=== PATIENT | male | born 1965 | race Caucasian/White ===

== ENCOUNTER 2023-09-04 11:48 | Emergency (ER) | payer BC, SELFPAY ==
[2023-09-04 11:49] VITALS: BP 134/85; PULSE 114; RESP 18; TEMP 36; O2SAT 98; BMI 33.3
--- NOTE | 2023-09-04 12:13 | CT_ITS ---
STUDY: CT ABDOMEN AND PELVIS WITHOUT CONTRAST REASON FOR EXAM: Male, 57 years old. Left flank pain RADIATION DOSAGE (If Supplied By Facility): CTDIvol = ( 19.44 ) mGy, DLP = ( 1053.69 ) mGycm TECHNIQUE: Transaxial images were obtained from the dome of the diaphragm to the symphysis pubis without oral contrast, and without intravenous contrast. Sagittal and coronal images were reconstructed. Individualized dose optimization techniques were used for this CT. COMPARISON: None. FINDINGS: The visualized lung bases are unremarkable. Coronary artery calcification. Normal liver. Normal gallbladder and extrahepatic biliary system. Normal spleen. Normal pancreas. Normal bilateral adrenal glands. Scattered nonobstructive tiny calculi seen in the right kidney. The largest is in the upper pole and measures 5 mm. 3 mm calculus is in the upper pole calyx of the left kidney. A punctate calculus is also seen in the mid posterior pole of the left kidney. Small stone is seen in the lower pole calyx of the left kidney. Small left parapelvic renal cysts. Mild degree of the nonspecific bilateral perinephric stranding. Normal visualized stomach. Normal small intestine. There are scattered colonic diverticula consistent with diverticulosis. The appendix is visualized and appears normal. There is scattered atherosclerotic calcification of the abdominal aorta, without a demonstrated aneurysm. Normal inferior vena cava. Normal retroperitoneum. Normal urinary bladder. There is enlargement of the prostate gland. It measures 3 cm x 4 cm. This causes indentation of the bladder base. Normal abdominal wall. There are diffuse degenerative changes of the visualized lumbar spine. Straightening of the normal lumbar lordosis. CT/Abdomen/Pelvis without Cont IMPRESSION: Nonobstructive bilateral intrarenal calculi. Small left parapelvic renal cysts. Mild enlargement of the prostate with indentation at the bladder base. Scattered sigmoid diverticula. Electronically Signed: Toby Mart MD at 12:47 EDT ,
--- NOTE | 2023-09-04 12:16 | EDS_ITS ---
HPI History of Present Illness Chief Complaint: Flank Pain Informant: patient and spouse/S.O. Narrative Narrative: 57-year-old male presenting to the emergency room with flank pain. Patient states that little over a year ago he developed pain in the left low back. He states that it went on for couple weeks and eventually resolved after he took some antibiotics for possible prostate infection. He states that in May of this year he had return of the same symptoms which again lingered and went away but then returned. While on vacation last week as doctor called him in some Bactrim. Patient states it is not improving. Patient notes that the pain seems to be left low back and will occasionally radiate along the waistline towards the left inguinal region. He denies any testicular pain or urinary symptoms. He does note some changes with bowel pattern. He notes that the stool lately has been very hard to clean. He has not characterizing it is black at this time. No reported fevers. Notes about a 9 pound weight loss recently which he does attribute to beginning Trulicity again for his diabetes. Denies any cough shortness of breath. He has had some occasional sweats. Pain does wax and wane at times he can find a very specific position to get into that which seems to help it. He states he had a prior kidney stone which this feels different. He denies any abdominal pain. He is supposed to see urology next week for an evaluation. He does note some occasional electric-like shocks into his bilateral legs. However he notes that that is relatively uncommon. [facility] Medical History Hypertension Depression Gout DM II (diabetes mellitus, type II), controlled Home Medications ?Medication ?Instructions ?Recorded ?Last Taken ?Type allopurinol 300 mg tablet 300 mg PO DAILY 09/04/23 Unknown History ascorbic acid (vitamin C) 500 mg 500 mg PO DAILY 09/04/23 Unknown History tablet (C-500) benazepril 10 mg tablet (Lotensin) 10 mg PO DAILY 09/04/23 Unknown History cholecalciferol (vitamin D3) 125 125 mcg PO DAILY 09/04/23 Unknown History mcg (5,000 unit) tablet (Vitamin D3) dulaglutide 0.75 mg/0.5 mL 0.75 mg subcut QWEEK 09/04/23 Unknown History subcutaneous pen injector (Trulicity) fluoxetine 20 mg capsule 20 mg PO DAILY 09/04/23 Unknown History metformin 1,000 mg tablet 1,000 mg PO BID 09/04/23 Unknown History oxycodone-acetaminophen 5 mg-325 1 tab PO Q6H PRN PRN pain 3 days 09/04/23 Unknown Rx mg tablet (Percocet) #12 tabs sulfamethoxazole 800 1 tab PO Q12H 09/04/23 Unknown History mg-trimethoprim 160 mg tablet (Bactrim DS) zinc 50 mg capsule 50 mg PO DAILY 09/04/23 Unknown History Allergy/AdvReac Type Severity Reaction Status Date / Time bee venom protein (honey Allergy Severe Anaphylaxis Verified 09/04/23 11:49 bee) (bees) Social History Smoking Status: Never smoker ROS ROS ED Constitutional Constitutional ED: Reports sweats and weight loss; Denies chills or fever(s) Eyes Eyes: Denies change in vision or diplopia ENT ENT ED: Denies ear pain, rhinorrhea or sore throat Cardiovascular Cardiovascular: Denies chest pain, orthopnea, palpitations or racing heartbeat Respiratory/Chest Respiratory/Chest: Denies cough, dyspnea or orthopnea Gastrointestinal Gastrointestinal: Denies abdominal pain, diarrhea, melena, nausea or vomiting Genitourinary Genitourinary ED: Denies dysuria, hematuria or urinary frequency Musculoskeletal Musculoskeletal: Reports back pain; Denies arthralgias or myalgias Integumentary Denies abscess or rash Neurologic Neurologic: Denies headache(s) or weakness Psychiatric Psychiatric: Denies anxiety, depression, suicidal ideation or suicidal thoughts Endocrine Endocrinology: Denies polydipsia, polyphagia or polyuria Allergic/Immunologic Allergic/Immunologic ED: Denies mouth swelling, tongue swelling or urticaria EXAM Physical Exam Const Vital Signs: 09/04/23 11:49 09/04/23 13:48 Temperature 96.8 F L Temperature Source Temporal Pulse Rate 114 H 83 Respiratory Rate 18 18 Blood Pressure 134/85 H 102/69 Blood Pressure Mean 101 80 Pulse Ox 98 98 Oxygen Delivery Method Room Air Room Air Positive well nourished and well developed General Appearance ED: well developed HEENT Reports normocephalic, head/scalp atraumatic and moist mucous membranes Eyes PERRL and EOMs intact bilaterally Neck no lymphadenopathy, supple and no JVD Resp normal respiratory effort and clear to auscultation bilaterally Cardio regular rate, regular rhythm and no murmurs GI normal to inspection, nondistended, normoactive bowel sounds and non-tender Palpation: soft Back/Spine no CVA tenderness and normal ROM Extremity normal to inspection General Extremety ED: Negative for edema General Extremity: Negative for edema Neuro oriented x3 and CN's II-XII intact bilaterally Sensorium / Orientation: alert Motor Exam: strength 5/5 throughout Psych mental status grossly normal Mood & Affect: Negative for depressed or tearful Skin Skin Narrative: There are about 4 small circular erythematous lesions on the right upper mid back appears to been bitten by some type of insect with a central excoriation. No surrounding cellulitic changes. MDM MDM MDM Narrative Medical decision making narrative: Differential diagnosis includes but not limited to UTI urinary retention hydronephrosis pyelonephritis retroperitoneal hematoma psoas hematoma lumbar radiculopathy malignancy CBC normal. BMP with a glucose of 167 creatinine 1.07. Sodium 132. Liver lipase within normal limits. Urinalysis shows no overt infection or hematuria. Small amount of protein and glucose was noted. CT of the abdomen pelvis without contrast was obtained. This demonstrates stones inside the kidney. Parapelvic renal cyst noted on the left I do not appreciate hydronephrosis hydroureter. I do not see any bony lesions. Enlarged prostate is noted. The above findings were discussed with the patient. I do not have a clear etiology for the patient's pain. He has follow-up scheduled next week with urology. I have asked that he follow-up with primary care as well. He may need to have lumbar MRI. Clinically I am not seeing anything obvious to intervene upon at this time. I can write for some pain medication. He notes understanding the plan will return if worsening or new symptoms or concerns History & Record Review Discussion w/independent historian: Patient and Significant other Additional record(s) reviewed:: Prior labs Lab Data Attestation: I reviewed the patient's lab results. Labs: Laboratory Results - last 24 hr 09/04/23 12:20 WBC 10.4 RBC 5.46 Hgb 16.1 Hct 47.9 MCV 87.7 MCH 29.5 MCHC 33.6 RDW Std Deviation 40.6 RDW Coeff of Jodie 12.6 Plt Count 335 MPV 10.1 Immature Gran % (Auto) 0.700 Neut % (Auto) 64.3 Lymph % (Auto) 26.0 [place] % (Auto) 5.1 Eos % (Auto) 2.9 Baso % (Auto) 1.0 Absolute Neuts (auto) 6.7 Absolute Lymphs (auto) 2.70 Nucleated RBC % 0 Sodium 132 L Potassium 4.9 Chloride 101 Carbon Dioxide 25.0 Anion Gap 6 BUN 18 Creatinine 1.07 Estim Creat Clear Calc 85.02 Est GFR (MDRD) Af Amer 91 Est GFR (MDRD) Non-Af 75 BUN/Creatinine Ratio 16.8 Glucose 167 H Calcium 10.7 H Total Bilirubin 0.50 Direct Bilirubin 0.14 AST 11 L ALT 18 Alkaline Phosphatase 90 Total Protein 7.5 Albumin 3.8 Globulin 3.7 Lipase 42 Urine Color Yellow Urine Clarity Clear Urine pH 6.0 Ur Specific [place] 1.020 Urine Protein 15 H Urine Glucose (UA) 100 H Urine Ketones 15 H Urine Occult Blood Negative Urine Nitrite Negative Urine Bilirubin Negative Urine Urobilinogen 1 H Ur Leukocyte Esterase Negative Urine RBC 0 SEEN Urine WBC 0 SEEN Ur Squamous Epith Cells 0 SEEN Urine Bacteria 0 SEEN Urine Mucus 0 SEEN Radiography Diagnostic Testing: Clinical Impression(s) from Imaging Studies Abdomen/Pelvis CT 09/04/23 12:13 IMPRESSION: Nonobstructive bilateral intrarenal calculi. Small left parapelvic renal cysts. Mild enlargement of the prostate with indentation at the bladder base. Scattered sigmoid diverticula. Electronically Signed: Toby Mart MD at 12:47 EDT , Discharge Plan Triage Chief Complaint: Flank Pain ED Provider: Jus Ty Dx/Rx/DC Orders Clinical Impression: Acute low back pain, Diabetes mellitus Instructions: ED Kidney Stone No Sx, ED Pain, Acute, Uncertain Cause Prescriptions: New oxycodone-acetaminophen [Percocet] 5-325 mg tablet 1 tab PO Q6H PRN PRN (Reason: pain) 3 Days Qty: 12 0RF No Action Trulicity 0.75 mg/0.5 mL pen injector 0.75 mg subcut QWEEK sulfamethoxazole-trimethoprim [Bactrim DS] 800-160 mg tablet 1 tab PO Q12H benazepril [Lotensin] 10 mg tablet 10 mg PO DAILY allopurinol 300 mg tablet 300 mg PO DAILY metformin 1,000 mg tablet 1,000 mg PO BID fluoxetine 20 mg capsule 20 mg PO DAILY zinc 50 mg capsule 50 mg PO DAILY cholecalciferol (vitamin D3) [Vitamin D3] 125 mcg (5,000 unit) tablet 125 mcg PO DAILY ascorbic acid (vitamin C) [C-500] 500 mg tablet 500 mg PO DAILY Primary Care Provider: Abdias Christie Referrals: Abdias Christie MD [Primary Care Provider] - As soon as possible (Please discuss a follow up MRI of the lumbar spine/further evaluation of pain) Print Language: Monegasque Disposition Disposition: Home, Self Care
[2023-09-04 12:34] LABS: Bacteria 0 SEEN /hpf (None Seen); Mucous, Urine 0 SEEN /hpf (<or=2+); Red Blood Cells-Urine 0 SEEN /hpf (0-5); Squamous Epithelial Cells - UA 0 SEEN /hpf (0-5); White Blood Cells 0 SEEN /hpf (0-5)
[2023-09-04 12:39] LABS: Color, Urine Yellow (Yellow); Glucose, Dipstick 100 mg/dl (Normal); Ketone-Dipstick 15 mg/dl (Negative); Leukocyte Esterase-Dipstick Negative /ul (Negative); Nitrite-Dipstick Negative (Negative); Occult Blood-Urine Negative /ul (Negative); Protein-Dipstick 15 mg/dl (Negative); Urine Bilirubin Dipstick Negative (Negative); Urine Clarity Clear (Clear); Urine Urobilinogen 1 mg/dl (Normal)
[2023-09-04 12:50] LABS: Absolute Neutrophil Count 6.7 X10^3/uL (2.0-7.7); Eosinophils% 2.9 % (0-5); Hematocrit 47.9 % (40-54); Hemoglobin 16.1 g/dL (13.0-16.5); Mean Corp Hgb Conc 33.6 g/dL (32-36); Mean Corpuscular Hgb 29.5 pg (27.0-32.0); Mean Corpuscular Volume 87.7 fL (80-94); Mean Platelet Vol. 10.1 fl (6.2-12.0); Monocyte# 0.53 X10^3/uL; Monocyte% 5.1 % (0-10); NRBC Flagged by Analyzer 0 % (0-5); Neutrophil # 6.69 X10^3/uL (2.7-7.7); Neutrophil % 64.3 % (47-70); Platelet Count 335 K/mm3 (150-450); RBC Distribution Width CV 12.6 % (11.6-14.6); RBC Distribution Width SD 40.6 fl (35.1-43.9); Red Blood Count 5.46 M/mm3 (4.6-6.2); White Blood Count 10.4 K/mm3 (4.4-11.0)
[2023-09-04 13:11] LABS: AST(SGOT) 11 U/L (15-37); Alanine Aminotransfer ALT/SGPT 18 U/L (16-61); Albumin, Serum 3.8 g/dL (3.2-5.0); Alkaline Phosphatase 90 U/L (45-117); Anion Gap 6 (5-15); BUN 18 mg/dL (7-18); BUN/Creat Ratio 16.8 RATIO (10-20); Bilirubin, Direct 0.14 mg/dL (0.00-0.30); Calcium,Total 10.7 mg/dL (8.5-10.1); Chloride 101 mmol/L (98-107); Creatinine, Serum 1.07 mg/dL (0.70-1.30); EST Glomerular Filtration Rate 75 mL/min (>60); Est Glom Filt Rate - Afr Amer 91 mL/min (>60); Estimated Creatinine Clearance 85.02 ml/min; Globulin 3.7 g/dL (2.2-4.2); Glucose 167 mg/dL (74-106); Lipase 42 U/L (13-75); Potassium 4.9 mmol/L (3.5-5.1); Protein, Total 7.5 g/dL (6.4-8.2); Sodium Level 132 mmol/L (136-145)
[2023-09-04 13:48] VITALS: BP 102/69; PULSE 83; RESP 18; O2SAT 98
[2023-09-04 14:41] VITALS: BP 107/64; PULSE 82; RESP 16; TEMP 36.6; O2SAT 99
== END 2023-09-04 14:43 | disposition home or self-care (01) ==
PROVIDERS: Emergency Provider Emergency Medicine; PCP Family Medicine; Visit Provider Emergency Medicine
DX: M54.50 Low back pain, unspecified (principal); E11.9 Type 2 diabetes mellitus without complications; Z79.85 Long-term (current) use of injectable non-insulin antidiabetic drugs; I10 Essential (primary) hypertension; Z79.899 Other long term (current) drug therapy; N20.0 Calculus of kidney; N28.1 Cyst of kidney, acquired; K57.30 Diverticulosis of large intestine without perforation or abscess without bleeding
CPT/HCPCS: 74176; 80048; 80076; 81001; 83690; 85025; 99283; A4216

== ENCOUNTER → 2023-09-10 | Outpatient (CLI) | payer BC, SELFPAY ==
[2023-09-10 17:52] LABS: PSA,Total - Annual Screen 0.61 ng/mL (0.00-4.00)
== END | disposition home or self-care (01) ==
LOC: LAB 16:30
PROVIDERS: PCP Family Medicine; Referring Provider Nurse Practitioner; Visit Provider Nurse Practitioner
DX: Z12.5 Encounter for screening for malignant neoplasm of prostate (principal)
CPT/HCPCS: 36415; 84153; G0103